=== PATIENT | female | born 1990 | race Two or more races ===

== ENCOUNTER → 2017-05-14 | Outpatient (CLI) | payer MEDICAID ==
--- NOTE | 2017-05-14 13:36 | RADIOLOGY REPORT (SQ) ---
EXAM DESCRIPTION: CHEST PA/LATERAL COMPLETED DATE/TIME: 05/14/2017 1:14 pm REASON FOR STUDY: CHEST PAIN UNSPEC COMPARISON: Right shoulder films same date EXAM PARAMETERS: NUMBER OF VIEWS: two views TECHNIQUE: Digital Frontal and Lateral radiographic views of the chest acquired. RADIATION DOSE: NA LIMITATIONS: none FINDINGS: LUNGS AND PLEURA: No opacities, masses or pneumothorax. No pleural effusion. MEDIASTINUM AND HILAR STRUCTURES: No masses or contour abnormalities. HEART AND VASCULAR STRUCTURES: Heart normal size. No evidence for failure. BONES: No acute findings. HARDWARE: None in the chest. OTHER: No other significant finding. IMPRESSION: NO SIGNIFICANT RADIOGRAPHIC FINDING IN THE CHEST. TECHNICAL DOCUMENTATION: JOB ID: [id number] [employer]- All Rights Reserved
--- NOTE | 2017-05-14 13:38 | RADIOLOGY REPORT (SQ) ---
EXAM DESCRIPTION: C SP 4 OR 5 VIEWS COMPLETED DATE/TIME: 05/14/2017 1:14 pm REASON FOR STUDY: STRAIN OF MUSCLE, FASCIA AND TENDON AT NECK LEVEL, SUBS S16.1XXD STRAIN OF MUSCLE , FASCIA AND TENDON AT NECK LEVEL, R07.9 CHEST PAIN, UNSPECIFIED R20.2 PARESTHESIA OF SKIN COMPARISON: None. NUMBER OF VIEWS: Five views. TECHNIQUE: AP, lateral, obliques and odontoid radiographic images acquired of the cervical spine. LIMITATIONS: None. FINDINGS: MINERALIZATION: Normal. ALIGNMENT: Straightening of cervical curvature likely due to muscle spasm VERTEBRAE: Vertebral bodies of normal height. DISCS: No significant osteophytes or sclerosis. Disc height maintained. FORAMINA: No osteophytes or foraminal narrowing. LATERAL AND POSTERIOR ELEMENTS: Facets, lateral masses and spinous processes without significant find ings. HARDWARE: None in the spine. SOFT TISSUES: No masses or calcifications. Lung apices clear. OTHER: No other significant finding. IMPRESSION: NO SIGNIFICANT RADIOGRAPHIC FINDING IN THE CERVICAL SPINE. TECHNICAL DOCUMENTATION: JOB ID: [id number] [employer]- All Rights Reserved
--- NOTE | 2017-05-14 13:41 | RADIOLOGY REPORT (SQ) ---
EXAM DESCRIPTION: SHOULDER RIGHT 2 OR MORE VIEWS COMPLETED DATE/TIME: 05/14/2017 1:14 pm REASON FOR STUDY: PARESTHESIA OF SKIN S16.1XXD STRAIN OF MUSCLE, FASCIA AND TENDON AT NECK LEVEL, R07.9 CHEST PAIN, UNSPECIFIED R20.2 PARESTHESIA OF SKIN COMPARISON: None. NUMBER OF VIEWS: Three views. TECHNIQUE: Internal rotation, external rotation, and Y view images acquired of the right shoulder. LIMITATIONS: None. FINDINGS: MINERALIZATION: Normal. BONES: No acute fracture or dislocation. No worrisome bone lesions. JOINTS: No glenohumeral dislocation. Acromioclavicular joint unremarkable VISUALIZED LUNGS AND RIBS: No pneumothorax. No rib fracture. SOFT TISSUES: No radiopaque foreign body. OTHER: No other significant finding. IMPRESSION: NEGATIVE STUDY OF THE RIGHT SHOULDER. NO RADIOGRAPHIC EVIDENCE OF ACUTE INJURY. TECHNICAL DOCUMENTATION: JOB ID: [id number] [email or web address]- All Rights Reserved
== END ==
LOC: OD 12:42
PROVIDERS: ATTEND Family Medicine
DX: S16.1XXD Strain of muscle, fascia and tendon at neck level, subsequent encounter (principal); X58.XXXD Exposure to other specified factors, subsequent encounter; R07.9 Chest pain, unspecified; R20.2 Paresthesia of skin
CPT/HCPCS: 71020; 72050

== ENCOUNTER 2019-06-04 18:53 | Emergency (ER) | payer MEDICAID ==
--- NOTE | 2019-06-04 19:49 | ER Document Report ---
ED Skin Rash/Insect Bite/Abscs - General Chief Complaint: Abscess Stated Complaint: POSSIBLE ABCESS Time Seen by Provider: 06/04/19 19:31 Primary Care Provider: GERRI HATHAWAY DO [Primary Care Provider] - Follow up as needed Mode of Arrival: Ambulatory Information source: Patient Notes: 28-year-old female presented to ED for a right Bartholin's abscess that is been present for 3 days. She states she has never had any history of abscess or anything like this in the past. She has very limited Hungarian so I used [id number] Ukrainian-speaking to do this interview. Qualifications Examiner stayed present while I did my examination also. TRAVEL OUTSIDE OF THE [place] IN LAST 30 DAYS: No - HPI Patient complains to provider of: Tender/swollen area Onset: Other - 3 days Onset/Duration: Gradual, Worse Quality of pain: Sharp, Throbbing Severity: Severe Pain Level: 5 Skin Character: Abscess - Right labia Quality of rash: Painful Identify cause: No Exacerbated by: Movement Relieved by: Denies Similar symptoms previously: No Recently seen / treated by doctor: No - Related Data Allergies/Adverse Reactions: No Known Allergies Allergy (Verified 06/04/19 18:56) Past Medical History - General Information source: Patient - Social History Smoking Status: Current Every Day Smoker Cigarette use (# per day): Yes - 1 cigarette a day Smoking Education Provided: Yes - 4 minutes Frequency of alcohol use: None Drug Abuse: None Occupation: Construction Lives with: Spouse/Significant other Family History: Reviewed & Not Pertinent Patient has suicidal ideation: No Patient has homicidal ideation: No - Past Medical History Cardiac Medical History: Reports: None Pulmonary Medical History: Reports: None EENT Medical History: Reports: None Neurological Medical History: Reports: None Endocrine Medical History: Reports: None Renal/ Medical History: Reports: None Malignancy Medical History: Reports: None GI Medical History: Reports: None Musculoskeletal Medical History: Reports None Skin Medical History: Reports Hx Cellulitis Psychiatric Medical History: Reports: None Traumatic Medical History: Reports: None Infectious Medical History: Reports: None Surgical Hx: Negative Past Surgical History: Reports: None Review of Systems - Review of Systems Constitutional: No symptoms reported EENT: No symptoms reported Cardiovascular: No symptoms reported Respiratory: No symptoms reported Gastrointestinal: No symptoms reported Genitourinary: No symptoms reported Female Genitourinary: Other - Right labial abscess Musculoskeletal: No symptoms reported Skin: No symptoms reported Hematologic/Lymphatic: No symptoms reported Neurological/Psychological: No symptoms reported -: Yes All other systems reviewed and negative Physical Exam - Vital signs Vitals: Temp Pulse Resp BP Pulse Ox 98.4 F 94 18 130/79 H 97 06/04/19 18:58 06/04/19 18:58 06/04/19 18:58 06/04/19 18:58 06/04/19 18:58 Interpretation: Normal - General General appearance: Appears well, Alert - HEENT Head: Normocephalic, Atraumatic Eyes: Normal Pupils: PERRL - Respiratory Respiratory status: No respiratory distress Chest status: Nontender Breath sounds: Normal Chest palpation: Normal - Cardiovascular Rhythm: Regular Heart sounds: Normal auscultation Murmur: No - Abdominal Inspection: Normal Distension: No distension Bowel sounds: Normal Tenderness: Nontender Organomegaly: No organomegaly - Genitourinary External exam: Other - Right labial abscess - Back Back: Normal, Nontender - Extremities General upper extremity: Normal inspection, Nontender, Normal color, Normal ROM, Normal temperature General lower extremity: Normal inspection, Nontender, Normal color, Normal ROM, Normal temperature, Normal weight bearing. No: Aaron's sign - Neurological Neuro grossly intact: Yes Cognition: Normal Orientation: AAOx4 [place] Coma Scale Eye Opening: Spontaneous [place] Coma Scale Verbal: Oriented Mikki Coma Scale Motor: Obeys Commands Mikki Coma Scale Total: 15 Speech: Normal Motor strength normal: LUE, RUE, LLE, RLE Sensory: Normal - Psychological Associated symptoms: Normal affect, Normal mood - Skin Skin Temperature: Warm Skin Moisture: Dry Skin Color: Normal Course - Re-evaluation Re-evalutation: 06/05/19 02:23 Patient is having difficulty tolerating her procedure all I had the engineering leader online I spoke with her about getting a bulk driver's so that I could give her pain medication patient was very agreeable with this plan she was given morphine IM with Zofran and then she was able to tolerate the rest of the procedure. Patient was started on doxycycline after she assured me that she was not and had no plans of getting in the next couple weeks. She stated she would use condoms to ensure that she did not get but that she did not think it was could be in a problem because she was having too much pain down there. - Vital Signs Vital signs: Temp Pulse Resp BP Pulse Ox 97.9 F 103 H 18 131/82 H 98 06/04/19 20:42 06/04/19 20:42 06/04/19 20:42 06/04/19 20:42 06/04/19 20:42 Procedures - Incision and Drainage Right Labia Time completed: 20:22 Type: Complex Anesthetic type: 1% Lidocaine mL's of anesthetic: 5 Blade size: 11 I&D procedure: Shurclens applied Incision Method: Incision made by scalpel Amount/type of drainage: Copious amounts of purulent drainage Discharge - Discharge Clinical Impression: Abscess of right genital labia Condition: Stable Disposition: HOME, SELF-CARE Additional Instructions: ABSCESS: You have an abscess (boil). This a pus-forming infection, usually due to staph. Some boils may be left to drain on their own, but most require lancing. From the time the tender lump first appears, it may be three or four days before the abscess is ready to blanca. Local heat and rest help at this stage of treatment. An antibiotic may prevent spread of the infection. Once the abscess is opened, packing may be placed into it. This is done so pus is not sealed inside by premature closure of the cavity. The packing will be removed at your follow-up visit or you may be advised to remove it yourself at home. Sometimes this packing must be replaced a few times during healing. The wound will heal with surprisingly little scar. Depending on the size and location of an abscess, healing can take one to four weeks. You may shower and wash the area around the incision site two or three times a day. Antibiotics may be prescribed, but are usually not necessary after an abscess has been drained. If you develop fever, chills, worsening pain, or increasing swelling in the area, call the doctor or return immediately. POST INCISION AND DRAINAGE: You have had an incision made to allow drainage of an abscess. The incision must remain open so that pus and debris can drain from the wound. If the abscess cavity is large, packing is placed. This keeps the tissues from collapsing and trapping pus inside, while the body shrinks the cavity. The packing may need to be replaced every day or two. The physician will instruct you on the packing. Keep a bulky dressing over the area. Replace it if it becomes saturated with blood or pus. Do not disturb the packing (if present). You may shower and cleanse the area with gentle soap and warm water two or three times a day. Local warmth may be soothing, and may promote faster healing. Return if you develop high fever or chills, or if you note spreading redness, increasing swelling, or increasing tenderness. ORAL NARCOTIC MEDICATION: You have been given a prescription for pain control. This medication is a narcotic. It's best taken with food, as nausea can result if taken on an empty stomach. Don't operate machinery or drive within six hours of taking this medication. Do not combine this medicine with alcohol, or with any medication which can cause sedation (such as cold tablets or sleeping pills) unless you get permission from the physician. Narcotics tend to cause constipation. If possible, drink plenty of fluids and eat a diet high in fiber and fruits. DOXYCYCLINE: Doxycycline (Vibramycin, Doryx) is an antibiotic of the tetracycline family. This type of drug is useful for infections of the respiratory tract and genital tract, and is sometimes used for intestinal infections. Unlike most tetracyclines, doxycycline can be taken with food. It is longer acting, and (usually) less prone to side effects than regular tetracycline. Tetracycline antibiotics can stain immature teeth and SHOULD NOT BE TAKEN BY CHILDREN, NURSING MOTHERS, OR WOMEN. Tetracyclines can make you more prone to sunburn. Abdominal cramping, nausea, and diarrhea are occasional side effects. Women may experience vaginal yeast infections. Call the doctor at once if you develop hives, itching, shortness of breath, or lightheadedness. FOLLOW-UP CARE: Most simple abscesses will not require a follow up visit. If you had packing placed in the abscess, remove it as instructed by the physician. If you have been referred to a physician for follow-up care, call the physicians office for an appointment as you were instructed or within the next two days. If you experience worsening or a significant change in your symptoms, return to the Emergency Department at any time for re-evaluation. Please return to the ED in 2 days to have your packing removed and your abscess reevaluated. Do not get in the bathtub you can shower do not take a bath. Prescriptions: Hydrocodone/Acetaminophen [[place] 5-325 mg Tablet] 1 tab PO Q6HP PRN #4 tablet PRN Reason: Doxycycline Hyclate 100 mg PO BID #14 capsule Forms: Elevated Blood Pressure, Smoking Cessation Education Referrals: GERRI HATHAWAY DO [Primary Care Provider] - Follow up as needed
[2019-06-04] MEDS ORDERED: MORPHINE SULFATE 10 MG/ML INJ IM ONE (20:07)
[2019-06-04] MEDS ORDERED: ONDANSETRON 4 MG TAB.RAPDIS PO ONE (20:07)
[2019-06-04] MEDS ORDERED: DOXYCYCLINE HYCLATE 100 MG TABLET PO ONE (20:29)
[2019-06-04 20:44] VITALS: BP 131/82
== END 2019-06-04 20:45 | disposition home or self-care (01) ==
LOC: ER 18:53
DX: N76.4 Abscess of vulva (principal)
CPT/HCPCS: 99282; 87070; 87205; 87075; 56405; A6266; J3490; S0119; J2270; 87077

== ENCOUNTER 2020-09-27 08:17 | Emergency (ER) | payer SELFPAY ==
[2020-09-27] MEDS ORDERED: NORMAL SALINE 1000 ML 1,000 ML IV ONE ×2 (09:28→11:47)
[2020-09-27] MEDS ORDERED: ONDANSETRON HCL INJ/PF 4 MG/2 ML SDV IV ONE (09:28)
[2020-09-27] MEDS ORDERED: DIPHENHYDRAMINE HCL 50 MG/ML VIAL IV ONE (09:28)
--- NOTE | 2020-09-27 09:28 | ER Document Report ---
ED General - General TRAVEL OUTSIDE OF THE [place] IN LAST 30 DAYS: No <NANDINI RENEE - Last Filed: 09/27/20 14:31> <LIYADEBORAH Isabel - Last Filed: 09/27/20 20:02> - General Chief Complaint: Headache Stated Complaint: HEADACHE Time Seen by Provider: 09/27/20 09:25 Primary Care Provider: GERRI HATHAWAY DO [Primary Care Provider] - Follow up as needed - HPI Notes: 30-year-old female who is Frisian-speaking only with a history of migraines presents to the emergency room today for a left-sided headache for the last 2 weeks but has become progressively worse today, reports she has left-sided headache with some blurred vision. Reports that she has been trying to take care of her headache at home with taking Advil without relief, she also does take Fioricet which is prescribed by her doctor. Reports this is the worst headache of her life. Denies being on any blood thinners. Patient also is reporting left lower quadrant abdominal pain that radiates to her back. Has not had anything to eat since 6pm yesterday, she is unsure as of its worse with food. States nothing makes better nothing makes worse. Reports last bowel movement was yesterday. Reports left lower quadrant abdominal pain is constant. Last menstrual cycle was 09/03/2020, G2, P1. Reports her last bowel movement was yesterday (THELMANANDINI Irene) - Related Data Allergies/Adverse Reactions: No Known Allergies Allergy (Verified 06/06/19 16:56) Past Medical History - General Information source: Patient - Social History Smoking Status: Never Smoker Family History: Reviewed & Not Pertinent Renal/ Medical History: Denies: Hx Peritoneal Dialysis Skin Medical History: Reports Hx Cellulitis Past Surgical History: Reports: Hx Section - Immunizations Immunizations up to date: Yes <THELMANANDINI A - Last Filed: 09/27/20 14:31> Review of Systems - Review of Systems Constitutional: No symptoms reported EENT: No symptoms reported Cardiovascular: No symptoms reported Respiratory: No symptoms reported Gastrointestinal: See HPI Genitourinary: No symptoms reported Female Genitourinary: No symptoms reported Musculoskeletal: No symptoms reported Skin: No symptoms reported Hematologic/Lymphatic: No symptoms reported Neurological/Psychological: See HPI <THELMANANDINI A - Last Filed: 09/27/20 14:31> Physical Exam <THELMANANDINI LEONARD A - Last Filed: 09/27/20 14:31> - Vital signs Vitals: Temp Pulse Resp BP Pulse Ox 100.4 F 131 H 18 121/73 98 09/27/20 08:27 09/27/20 08:27 09/27/20 08:27 09/27/20 08:27 09/27/20 08:27 - Notes Notes: MEDICATIONS: I agree with the patient medications as charted by the RN. ALLERGIES: I agree with the allergies as charted by the RN. PAST MEDICAL HISTORY/PAST SURGICAL HISTORY: Reviewed and agree as charted by RN. SOCIAL HISTORY: Reviewed and agree as charted by RN. FAMILY HISTORY: No significant familial comorbid conditions directly related to patient complaint EXAM: Reviewed vital signs as charted by RN. PHYSICAL EXAMINATION: reviewed vital signs by RN GENERAL: Well-appearing, well-nourished and in no acute distress. HEAD: Atraumatic, normocephalic. EYES: Pupils equal round and reactive to light, extraocular movements intact, conjunctiva are normal. ENT: Nares patent, oropharynx clear without exudates. Moist mucous membranes. NECK: Normal range of motion, supple without lymphadenopathy LUNGS: Breath sounds clear to auscultation bilaterally and equal. No wheezes rales or rhonchi. HEART: Regular rate and rhythm without murmurs ABDOMEN: Soft, left lower quadrant, left upper quadrant tenderness on palpation nondistended abdomen. No guarding, no rebound. No masses appreciated. Left CVA tenderness appreciated, no CVA tenderness appreciated on right Female : deferred Musculoskeletal: Normal range of motion, no pitting or edema. No cyanosis. NEUROLOGICAL: PERRLA, EOMI. Full motor and sensory function throughout. Mesh Man + 2 equal bilaterally in BUE. Tongue midline. No pronator drift. No ataxia. Neck with APROM. Raises eyebrows. Strength is 5 out of 5 in bilateral upper and lower extremities equally.Speaks in full sentences. No weakness on one side. PSYCH: Normal mood, normal affect. SKIN: Warm, Dry, normal turgor, no rashes or lesions noted. (NANDINI RENEE) Course - Laboratory Result Diagrams: 09/27/20 10:45 09/27/20 10:45 <NANDINI RENEE - Last Filed: 09/27/20 14:31> - Laboratory Result Diagrams: 09/27/20 10:45 09/27/20 10:45 <DEBORAH NICKERSON - Last Filed: 09/27/20 20:02> - Re-evaluation Re-evalutation: 09/27/20 13:33 Febrile with a temperature of 103, Tylenol given, heart rate elevated, blood pressure normal. CBC does show leukocytosis of 23.4 with a shift, CMP shows normal hepatic and renal function, no electrolyte disturbances. Lactic is 1.1, CRP is 46, serum hCG is negative. Patient started on IV Rocephin. Blood cultures pending patient received IV fluids, Benadryl, Zofran, after CT of head was done which did show left-sided sesamoid, frontal, ethmoid maxillary acute sinusitis, no bleed, we did give Toradol 30 mg IVP. Patient's heart rate did reduce after IV fluids and antipyretic. CT abdomen pelvis with IV and oral contrast did show a 2 to 3 mm obstructive stone at the left UVJ with moderate left-sided hydronephrosis and perinephric stranding. CT also shows a high- grade obstruction with a left-sided nephrogram as well as a small nonobstructive stone to the left lower pole. Urinalysis does show moderate leuk esterase with nitrites and hematuria. Transvaginal ultrasound does show a left ovarian cyst otherwise unremarkable. consulted with Dr. Chester, supervising physician, who recommended patient get the transfer to [facility]. [facility] said they were in surgery for a few hours it would be able to get back to us, I did consult with Lynn Jiang as well as yoselin, pending urology hospitalist to return call.[id number]-[facility] did accept patient. Patient will be transferred to [facility] via EMS. Patient requesting pain medication pain is 5 out of 5, will give her IV Dilaudid. She does remain n.p.o. 09/27/20 15:56 (NANDINI RENEE) 09/27/20 20:01 Just prior to transport by EMS team patient evaluated by me and is medically stable and medically cleared for transport to [facility]. Patient's vital signs show a sinus tachycardia. 09/27/20 20:01 (DEBORAH NICKERSON) - Vital Signs Vital signs: Temp Pulse Resp BP Pulse Ox 98.7 F 121 H 28 H 104/74 98 09/27/20 18:13 09/27/20 10:32 09/27/20 18:13 09/27/20 18:13 09/27/20 18:13 - Laboratory Laboratory results interpreted by me: 09/27/20 09/27/20 09/27/20 10:45 10:45 13:00 WBC 23.4 H Hct 35.4 L Seg Neuts % (Manual) 88 H Band Neutrophils % 1 L Lymphocytes % (Manual) 6 L Abs Neuts (Manual) 20.8 H ESR 76 H Glucose 119 H C-Reactive Protein 64.0 H Urine Blood MODERATE H Urine Nitrite POSITIVE H Ur Leukocyte Esterase MODERATE H Discharge <NANDINI RENEE - Last Filed: 09/27/20 14:31> <DEBORAH NICKERSON - Last Filed: 09/27/20 20:02> - Discharge Clinical Impression: Sinusitis, acute, obstructed left uvj stone, Leukocytosis, Pyelonephritis Condition: Stable Disposition: [facility] Referrals: GERRI HATHAWAY DO [Primary Care Provider] - Follow up as needed
--- NOTE | 2020-09-27 10:30 | RADIOLOGY REPORT (SQ) ---
EXAM DESCRIPTION: CT HEAD WITHOUT IMAGES COMPLETED DATE/TIME: 09/27/2020 10:17 am REASON FOR STUDY: severe RODRIGUEZ today, "worst RODRIGUEZ of life". COMPARISON: None. TECHNIQUE: Axial images acquired through the brain without intravenous contrast. Images reviewed wi th bone, brain and subdural windows. Additional sagittal and coronal reconstructions were generated. Images stored on PACS. All CT scanners at this facility use dose modulation, iterative reconstruction, and/or weight based d osing when appropriate to reduce radiation dose to as low as reasonably achievable (ALARA). [facility]: Dose Right [facility]: CareDose [facility]: Dose Right [facility]: Teradose 4D [facility]: [employer] RADIATION DOSE: CT Rad equipment meets quality standard of care and radiation dose reduction techniq ues were employed. CTDIvol: 53.2 mGy. DLP: 991 mGy-cm. mGy. LIMITATIONS: None. FINDINGS: VENTRICLES: Normal size and contour. CEREBRUM: No masses. No hemorrhage. No midline shift. No evidence for acute infarction. Normal gra y/white matter differentiation. No areas of low density in the white matter. CEREBELLUM: No masses. No hemorrhage. No alteration of density. No evidence for acute infarction. EXTRAAXIAL SPACES: No fluid collections. No masses. ORBITS AND GLOBE: No intra- or extraconal masses. Normal contour of globe without masses. CALVARIUM: No fracture. PARANASAL SINUSES: There is left-sided maxillary, frontal, ethmoid and sphenoid sinusitis. Small ret ention cyst or polyp in the right maxillary sinus. SOFT TISSUES: No mass or hematoma. OTHER: No other significant finding. IMPRESSION: 1. No acute intracranial event. 2. Extensive left-sided frontal, ethmoid, maxillary and mild left-sided sphenoid sinusitis. EVIDENCE OF ACUTE STROKE: NO. COMMENT: Quality ID # [id number]: Final reports with documentation of one or more dose reduction techniques (e.g., Automated exposure control, adjustment of the mA and/or kV according to patient size, use of iterative reconstruction technique) TECHNICAL DOCUMENTATION: JOB ID: [id number] 2010 [employer]- All Rights Reserved Reading location - IP/workstation name: [email or web address]
[2020-09-27] MEDS ORDERED: ACETAMINOPHEN 325 MG TABLET PO ONE (10:36)
[2020-09-27] MEDS ORDERED: AMOXICILLIN TR/POT CLAVULANATE 875-125 MG TAB PO ONE (11:06)
[2020-09-27] MEDS ORDERED: KETOROLAC TROMETHAMINE INJ/PF 30 MG/1 ML SDV IV ONE (11:10)
[2020-09-27] MEDS ORDERED: MORPHINE SULFATE 10 MG/ML INJ IV ONE ×2 (11:10→12:12)
[2020-09-27 11:19] LABS: HEMATOCRIT 35.4 % (36.0-47.0); MEAN CORPUSCULAR HEMOGLOBIN 30.6 pg (27.0-33.4); MEAN CORPUSCULAR VOLUME 90 fl (80-97); PLATELET COUNT 423 10^3/uL (150-450); RED BLOOD COUNT 3.93 10^6/uL (3.72-5.28); WHITE BLOOD COUNT 23.4 10^3/uL (4.0-10.5)
[2020-09-27 11:37] LABS: ALBUMIN 4.4 g/dL (3.5-5.0); ALKALINE PHOSPHATASE 93 U/L (38-126); ANION GAP 13 (5-19); ASPARTATE AMINO TRANSFERASE 19 U/L (14-36); BILIRUBIN,DIRECT 0.1 mg/dL (0.0-0.4); BILIRUBIN,TOTAL 0.5 mg/dL (0.2-1.3); BLOOD UREA NITROGEN 16 mg/dL (7-20); CALCIUM 10.1 mg/dL (8.4-10.2); CARBON DIOXIDE 22 mmol/L (22-30); CHLORIDE 104 mmol/L (98-107); GLUCOSE 119 mg/dL (75-110); POTASSIUM 4.8 mmol/L (3.6-5.0); TOTAL PROTEIN 7.9 g/dL (6.3-8.2)
[2020-09-27 11:53] LABS: ABSOLUTE LYMPHOCYTES# (MANUAL) 1.4 10^3/uL (0.5-4.7); ABSOLUTE MONOCYTES # (MANUAL) 1.2 10^3/uL (0.1-1.4); ANISOCYTOSIS SLIGHT; BAND NEUTROPHILS % (MANUAL) 1 % (3-5); BASOPHILS % (MANUAL) 0 % (0-2); EOSINOPHILS % (MANUAL) 0 % (0-6); LYMPHOCYTES % (MANUAL) 6 % (13-45); MONOCYTES % (MANUAL) 5 % (3-13); PLATELET COMMENT ADEQUATE; SEGMENTED NEUTROPHILS % (MAN) 88 % (42-78); TOTAL CELLS COUNTED 100
[2020-09-27 12:02] LABS: ERYTHROCYTE SEDIMENTATION RATE 76 mm/hr (0-20)
[2020-09-27] MEDS ORDERED: CEFTRIAXONE 1 GM/D5W RTU 1 GM/50 ML RTUPB IV ONE (12:14)
--- NOTE | 2020-09-27 12:35 | RADIOLOGY REPORT (SQ) ---
EXAM DESCRIPTION: CHEST SINGLE VIEW IMAGES COMPLETED DATE/TIME: 09/27/2020 12:26 pm REASON FOR STUDY: fever COMPARISON: None. EXAM PARAMETERS: NUMBER OF VIEWS: One view. TECHNIQUE: Single frontal radiographic view of the chest acquired. RADIATION DOSE: NA LIMITATIONS: None. FINDINGS: LUNGS AND PLEURA: No opacities, masses or pneumothorax. No pleural effusion. MEDIASTINUM AND HILAR STRUCTURES: No masses. Contour normal. HEART AND VASCULAR STRUCTURES: Heart normal in size. Normal vasculature. BONES: No acute findings. HARDWARE: None in the chest. OTHER: No other significant finding. IMPRESSION: NO ACUTE RADIOGRAPHIC FINDING IN THE CHEST. TECHNICAL DOCUMENTATION: JOB ID: [id number] 2010 [employer]- All Rights Reserved Reading location - IP/workstation name: [email or web address]
--- NOTE | 2020-09-27 13:09 | RADIOLOGY REPORT (SQ) ---
EXAM DESCRIPTION: CT ABD/PELVIS WITH IV ORAL IMAGES COMPLETED DATE/TIME: 09/27/2020 12:57 pm REASON FOR STUDY: LUQ, LLQ, L flank pain since this am, constant. COMPARISON: None. TECHNIQUE: CT scan of the abdomen and pelvis performed using helical scanning technique with dynamic intravenous contrast injection. No oral contrast. Images reviewed with lung, soft tissue, and bone windows. Reconstructed coronal and sagittal MPR images reviewed. Delayed images for evaluation of the urinary system also acquired. All images stored on PACS. All CT scanners at this facility use dose modulation, iterative reconstruction, and/or weight based d osing when appropriate to reduce radiation dose to as low as reasonably achievable (ALARA). [facility]: Dose Right [facility]: CareDose [facility]: Dose Right [facility]: Teradose 4D [facility]: Nextance CONTRAST TYPE AND DOSE: contrast/concentration: Isovue 350.00 mmol/ml; Total Contrast Delivered: 70. 0 ml; Total Saline Delivered: 39.8 ml RENAL FUNCTION: BUN 16, creatinine 0.84 RADIATION DOSE: CT Rad equipment meets quality standard of care and radiation dose reduction techniq ues were employed. CTDIvol: 6.4 - 9.2 mGy. DLP: 868 mGy-cm.. LIMITATIONS: None. FINDINGS: LOWER CHEST: No significant findings. No nodules or infiltrates. LIVER: Normal size. No masses. No dilated ducts. SPLEEN: Normal size. No focal lesions. PANCREAS: No masses. No significant calcifications. No adjacent inflammation or peripancreatic fluid collections. Pancreatic duct not dilated. GALLBLADDER: No identified stones by CT criteria. No inflammatory changes to suggest cholecystitis. ADRENAL GLANDS: No significant masses or asymmetry. RIGHT KIDNEY AND URETER: No solid masses. No significant calcifications. No hydronephrosis or hyd roureter. LEFT KIDNEY AND URETER: No solid masses. Nonobstructing stone approximately 2 to 3 mm in diameter i n the lower pole. Obstructing 2 to 3 mm stone at the left UPJ. Moderate left-sided hydronephrosis and perinephric stranding. Persistent left-sided nephrogram on delayed imaging. Some areas of heter ogeneous attenuation in the left kidney could represent some superimposed pyelonephritis. AORTA AND VESSELS: No aneurysm. No dissection. Renal arteries, SMA, celiac without stenosis. RETROPERITONEUM: No retroperitoneal adenopathy, hemorrhage or masses. BOWEL AND PERITONEAL CAVITY: No masses or inflammatory changes. No free fluid or peritoneal masses. APPENDIX: Not visualized. PELVIS: No mass. No free fluid. Normal bladder. ABDOMINAL WALL: No masses. No hernias. BONES: No significant or acute findings. OTHER: No other significant finding. IMPRESSION: 2 to 3 mm obstructing stone at the left UVJ with moderate left-sided hydronephrosis and perinephric stranding. Persistent left-sided nephrogram consistent with high-grade obstruction. The re is some heterogeneous attenuation in the left kidney on delayed images which could be related to t he obstruction although superimposed pyelonephritis is a possibility. Additional small nonobstructin g stone in the lower pole the left kidney. TECHNICAL DOCUMENTATION: JOB ID: [id number] Quality ID # [id number]: Final reports with documentation of one or more dose reduction techniques (e.g., Au tomated exposure control, adjustment of the mA and/or kV according to patient size, use of iterative reconstruction technique) 2010 [facility]- All Rights Reserved Reading location - IP/workstation name: [email or web address]
[2020-09-27 13:41] LABS: APPEARANCE,URINE SLIGHTLY-CLOUDY; BILIRUBIN,URINE NEGATIVE (NEGATIVE); COLOR,URINE YELLOW; GLUCOSE, URINE NEGATIVE (NEGATIVE); KETONES,URINE NEGATIVE (NEGATIVE); LEUKOCYTE ESTERASE,URINE MODERATE (NEGATIVE); NITRITE,URINE POSITIVE (NEGATIVE); PROTEIN,URINE NEGATIVE (NEGATIVE); URINE SPECIFIC GRAVITY 1.013; UROBILINOGEN,URINE NEGATIVE mg/dL (<2.0)
[2020-09-27] MEDS ORDERED: HYDROMORPHONE HCL INJ/PF 2 MG/ML AMPULE IV ONE ×3 (14:03→17:34)
--- NOTE | 2020-09-27 14:13 | RADIOLOGY REPORT (SQ) ---
EXAM DESCRIPTION: U/S NON OB PEL TV W/DOPPLER IMAGES COMPLETED DATE/TIME: 09/27/2020 2:04 pm REASON FOR STUDY: LLQ abd pain/pelvic pain COMPARISON: None. TECHNIQUE: Dynamic and static grayscale images acquired of the pelvis via transabdominal approach an d recorded on PACS. Additional selected color Doppler and spectral images recorded. LIMITATIONS: None. FINDINGS: UTERUS: Contour normal. No mass. ENDOMETRIAL STRIPE: No focal or generalized thickening. No masses. CERVIX: No nabothian cysts. RIGHT OVARY AND DOPPLER: Normal size. No worrisome masses. Normal arterial vascular flow without evid ence for torsion. LEFT OVARY AND DOPPLER: Normal size. No worrisome masses. Normal arterial vascular flow without evide nce for torsion. There is a small left ovarian cyst measured 1.6 x 1.5 x 0.9 cm. FREE FLUID: None noted. OTHER: No other significant finding. MEASUREMENTS: UTERUS: 8.1 x 5.6 x 4.0 cm. ENDOMETRIAL STRIPE: 7.4 mm. RIGHT OVARY: 2.9 x 1.5 x 2.0 cm. LEFT OVARY: 2.7 x 02.5 x 1.7 cm. IMPRESSION: Small left ovarian cyst. No other significant findings. TECHNICAL DOCUMENTATION: JOB ID: [id number] 2010 [email or web address]- All Rights Reserved Rev Reading location - IP/workstation name: [email or web address]
[2020-09-27 14:15] LABS: A TYPE INFLUENZA AG NEGATIVE (NEGATIVE); B INFLUENZA AG NEGATIVE (NEGATIVE)
[2020-09-27 19:00] VITALS: BP 104/74
== END 2020-09-27 18:25 | disposition short-term general hospital (02) ==
LOC: ER 08:17
DX: J01.90 Acute sinusitis, unspecified (principal); N12 Tubulo-interstitial nephritis, not specified as acute or chronic; N13.2 Hydronephrosis with renal and ureteral calculous obstruction; D72.829 Elevated white blood cell count, unspecified; R51.9 Headache, unspecified; N83.202 Unspecified ovarian cyst, left side; Z20.828 Contact with and (suspected) exposure to other viral communicable diseases
CPT/HCPCS: 96376; 99285; 96361; 96375; 96365; 36415; 87040; 87070; 87086; 87880; 84702; 83605; 83690; 85025; 85652; 0241U ×4; 86140; 87077; 87088; 80053; 81001; 87186; 87804; 87150 ×26; 71045; 76830; 93976; 70450; 74177; J1200; J1885; J2270; J1170; J2405; J7030; J0696; J3490; C9803